=== PATIENT | male | born 1935 | race Caucasian/White ===

== ENCOUNTER 2022-02-24 12:11 | Outpatient (CLI) | payer MEDICARE, OTHER ==
[~2022-02-24] VITALS: Ht 162.6 cm; Wt 98.9 kg
--- NOTE | 2022-02-24 14:05 | NUR ---
Patient and son Mele were in the [facility] clinic today to consult with Dr. Bernard, Dr. Andres Blanc and Dr. Palacios. [facility] test completed. Vital signs measured. Patient education reviewed and questions answered.
[2022-02-24 14:06] VITALS: BP 136/77
== END 2022-02-24 23:59 | disposition home or self-care (01) ==
LOC: RT 12:11
PROVIDERS: ATTEND Internal Medicine Cardiovascular Disease
DX: J98.4 Other disorders of lung (principal); I35.0 Nonrheumatic aortic (valve) stenosis; I65.29 Occlusion and stenosis of unspecified carotid artery
CPT/HCPCS: 94010; 94727; 94729

== ENCOUNTER 2022-04-07 13:26 | Outpatient (CLI) | payer MEDICARE, OTHER, MEDICAID ==
[~2022-04-07] VITALS: Ht 162.6 cm; Wt 95.3 kg
[~2022-04-07 13:26] MED LIST: ASPI81TA53 PO; ATOR40TA71 PO; BICA50TA7 PO; BUME1TAB34 PO; CARV6.252 PO; FLO0.4C PO; FURO-149 PO; LISI10TA27 PO; OMEG1CAP46 PO; WARF-55 PO
[2022-04-07 16:36] VITALS: BP 130/82
--- NOTE | 2022-04-07 16:38 | NUR ---
Patient and his were seen today for TAVR follow-up with Dr. Andres Blanc and Dr. Palacios. [facility] test completed. Vital signs measured. Echo and EKG reviewed with patient along with current condition of patients symptoms.
== END 2022-04-07 23:59 | disposition home or self-care (01) ==
LOC: RAD 13:26
PROVIDERS: ATTEND Internal Medicine Cardiovascular Disease
DX: Z48.812 Encounter for surgical aftercare following surgery on the circulatory system (principal); I08.8 Other rheumatic multiple valve diseases; I77.810 Thoracic aortic ectasia; I49.3 Ventricular premature depolarization; I44.4 Left anterior fascicular block; Z95.2 Presence of prosthetic heart valve
CPT/HCPCS: 93005; 93306